=== PATIENT | male | born 1950 | race Caucasian/White ===

== ENCOUNTER 2020-05-12 11:45 | Outpatient (CLI) | payer MEDICARE, OTHER ==
[2020-05-12 14:12] LABS: #Eosinphils 0.1 thou/uL (0.0-0.7); #Lymphocytes 1.4 thou/uL (1.20-3.40); #Monocytes 0.7 thou/uL (0.11-0.59); #Neutrophils 6.5 thou/uL (1.40-6.50); %Basophils 0.5 % (0.0-1.0); %Eosinophils 1.6 % (0.0-10.0); %Lymphocytes 16.1 % (21.0-51.0); %Monocytes 7.9 % (0.0-10.0); Hemoglobin 15.1 g/dL (14.0-18.0); Mean Corpuscular HGB CONC 33.4 g/dL (32.0-36.0); Mean Corpuscular Hemoglobin 33.3 pg (27.0-31.0); Mean Corpuscular Volume 99.5 fL (78.0-98.0); Platelet Count 158 thou/uL (130-400); Red Blood Cell (RBC) Count 4.52 mill/uL (4.70-6.10); White Blood Cell (WBC) Count 8.8 thou/uL (4.8-10.8)
[2020-05-12 15:43] LABS: ALT (SGPT) 50 U/L (8-55); AST (SGOT) 31 U/L (5-34); Albumin 4.8 g/dL (3.4-4.8); Alkaline Phosphatase 102 U/L (40-110); Anion Gap 15 mmol/L (10-20); BUN (Urea Nitrogen) 20 mg/dL (8.4-25.7); Bilirubin, Direct 0.3 mg/dL (0.1-0.3); Bilirubin, Total 0.8 mg/dL (0.2-1.2); Calc. Creatinine Clearance 0 mL/min (70-130); Calcium 9.9 mg/dL (7.8-10.44); Carbon Dioxide 22 mmol/L (23-31); Chloride 107 mmol/L (98-107); Estimated GFR-MDRD 58; Glucose 116 mg/dL (80-115); Potassium 4.3 mmol/L (3.5-5.1); Protein, Total 7.3 g/dL (5.8-8.1); Sodium 140 mmol/L (136-145)
[2020-05-13 12:22] LABS: SARS-CoV-2 MS2 Positive; SARS-CoV-2 N Gene Negative; SARS-CoV-2 S Gene Negative; SARS-CoV-2 orf1ab Negative
== END 2020-05-12 11:46 | disposition home or self-care (01) ==
LOC: LABBT 11:45
PROVIDERS: ATTEND Surgery
DX: Z01.818 Encounter for other preprocedural examination (principal); Z11.59 Encounter for screening for other viral diseases; K80.20 Calculus of gallbladder without cholecystitis without obstruction
CPT/HCPCS: 80048; 80076; 83690; 85025; 93005; U0003; 87635; 93010

== ENCOUNTER 2020-05-17 11:57 | Day surgery (SDC) | payer MEDICARE ==
[2020-05-16 13:03] VITALS: BMI 28.3
[~2020-05-17 11:57] MED LIST: Dexamethasone 20 MG/5 ML VIAL ONE; EPHEDRINE 25 MG/5 ML SYRINGE ONE; Glycopyrrolate 0.2 MG/ML 5 ML SYRINGE ONE; Lidocaine 1% PF 5 ML VIAL ONE; Ondansetron PF 4 MG/2 ML Vial ONE; PHENYLEPHRINE-NS 100 MCG/ML 10 ML SYRINGE ONE; PROPOFOL 200 MG/20 ML VIAL ONE; Rocuronium Bromide 10 MG/ML (10ML VIAL) ONE
[2020-05-17] MEDS ORDERED: Bupivacaine 0.25% HCL 30 ML VIAL ONE (15:41)
[2020-05-17] MEDS ORDERED: Lidocaine 1% w/Epinephrine 1:100K 20 ML VIAL ONE (15:41)
[2020-05-17] MEDS ORDERED: Iopamidol 50 ML FS ONE (16:04)
[2020-05-17] MEDS ORDERED: Fentanyl 250 MCG/5 ML VIAL ONE (16:17)
--- NOTE | 2020-05-17 17:30 | RAD ---
EXAM: XR Cholangiogram in Surgery PROVIDED CLINICAL HISTORY: Right upper quadrant pain and nausea. Cholelithiasis. COMPARISON: None FINDINGS/IMPRESSION: Single fluoroscopic image right upper quadrant from an intraoperative cholangiogram is submitted. Tereza gical instruments overlie the right upper quadrant. Cystic duct is cannulated. There is opacification of the common duct and most proximal right and left hepatic ducts. There is evidence of free spill of contrast into the small bowel. A very small portion of the mid common duct is obscured due to overlying surgical instrument, but there is otherwise no filling defect seen within t he visualized intra or extrahepatic bile ducts. Surgical clips overlie the right upper quadrant. Correlation with intraoperative findings is recommended. Fluoroscopy: Time-13 seconds Dose-2.70 mGy
[2020-05-17] MEDS ORDERED: Fentanyl 100 MCG/2 ML VIAL ONE (17:53)
[2020-05-17] MEDS ORDERED: hydrALAZINE 20 MG/ML VIAL ONE (17:56)
--- NOTE | 2020-05-18 13:08 | OP ---
DATE OF PROCEDURE: 05/17/2020 PREOPERATIVE DIAGNOSES: 1. Symptomatic gallstones. 2. History of liver test elevation. POSTOPERATIVE DIAGNOSES: 1. Symptomatic gallstones. 2. History of liver test elevation. PROCEDURES PERFORMED: 1. Laparoscopic cholecystectomy with intraoperative cholangiogram. 2. Laparoscopic liver core biopsy. ANESTHESIA: General. ESTIMATED BLOOD LOSS: Minimal. COMPLICATIONS: None. SPECIMEN: Gallbladder. Core needle biopsy of liver. FINDINGS: Normal cholangiogram. DESCRIPTION OF PROCEDURE: The patient was taken to the operating room and laid supine on the operating room table. After general anesthetic was obtained, the abdomen was shaved, prepped, draped in a sterile fashion. A curved incision was made below the umbilicus. Cautery was used to dissect down to and score the fascia. Abdominal cavity was entered bluntly using a Zuly clamp. Holding stitch of PDS was placed on each side of the fascia. [place] trocar was placed. High-flow pneumoperitoneum was obtained. An upper midline 5 mm port as well as two right upper quadrant 5 mm ports were placed under direct visualization. The gallbladder was retracted from the gallbladder fossa. The peritoneum was opened anteriorly and posteriorly. Critical view of triangle was seen, showing only the cystic duct and cystic artery branch medial to lateral. No other branching structures. A clip was placed high on the cystic duct. A small ductotomy was made just proximal to that. A cholangiocatheter was brought in through a separate stab incision and placed in the cystic duct and a cholangiogram was performed. It showed good contrast flow into the duodenum without obstruction. The cholangiocatheter was removed and 2 clips were placed proximally on the cystic duct and was cut using laparoscopic scissors. Cystic artery was taken using 2 clips proximally, 1 clip distally, cut using laparoscopic scissors. Cautery was used to dissect the gallbladder from the gallbladder fossa. The gallbladder was placed in EndoCatch bag and brought out through the [place]. There was no bleeding or bile in the liver bed. The right upper quadrant was irrigated using sterile solution. Three cores of liver obtained with percutaneous core needle biopsy. Cautery was used to control bleeding at the biopsy sites. There was no ongoing bleeding. All port sites were infiltrated using local anesthetic. All ports were removed under camera visualization. Pneumoperitoneum was let down. PDS was used to close the fascial defect below the umbilicus. All incisions were irrigated and closed using 4-0 Monocryl and Dermabond. The patient was sent to Recovery in stable condition. All instrument counts, needle counts, and lap counts were correct. Job ID: [id number]
== END 2020-05-17 19:10 | disposition home or self-care (01) ==
LOC: SDC 11:57
PROVIDERS: ATTEND Surgery
PROC: 0FT44ZZ Resection of Gallbladder, Percutaneous Endoscopic Approach (ICD-10-PCS; principal; 2020-05-17)
PROC: BF121ZZ Fluoroscopy of Gallbladder using Low Osmolar Contrast (ICD-10-PCS; 2020-05-17)
PROC: 0FB04ZX Excision of Liver, Percutaneous Endoscopic Approach, Diagnostic (ICD-10-PCS; 2020-05-17)
DX: K80.12 Calculus of gallbladder with acute and chronic cholecystitis without obstruction (principal); K76.0 Fatty (change of) liver, not elsewhere classified; Z79.899 Other long term (current) drug therapy
CPT/HCPCS: 47532; 88304; 88307; 88313; J0360; J1100; J2405; J2704; J3010; Q9967; S0020

== ENCOUNTER 2023-06-02 11:49 | Inpatient (IN) | payer MEDICARE ==
[~2023-06-02 11:49] MED LIST changes: -Dexamethasone 20 MG/5 ML VIAL ONE; -EPHEDRINE 25 MG/5 ML SYRINGE ONE; -Glycopyrrolate 0.2 MG/ML 5 ML SYRINGE ONE; +Iopamidol-370 76% 500 ML MDV (1 ML CHARGE) ONE; -Lidocaine 1% PF 5 ML VIAL ONE; -Ondansetron PF 4 MG/2 ML Vial ONE; -PHENYLEPHRINE-NS 100 MCG/ML 10 ML SYRINGE ONE; -PROPOFOL 200 MG/20 ML VIAL ONE; -Rocuronium Bromide 10 MG/ML (10ML VIAL) ONE
[2023-06-02 12:12] LABS: #Basophils 0.1 thou/uL (0.0-0.2); #Monocytes 1.3 thou/uL (0.11-0.59); #Neutrophils 12.4 thou/uL (1.40-6.50); %Basophils 0.4 % (0.0-1.0); %Eosinophils 0.1 % (0.0-10.0); %Monocytes 8.6 % (0.0-10.0); %Neutrophils 84.3 % (42.0-75.0); Hematocrit 46.9 % (42.0-52.0); Hemoglobin 15.7 g/dL (14.0-18.0); Mean Corpuscular HGB CONC 33.5 g/dL (32.0-36.0); Mean Corpuscular Hemoglobin 32.8 pg (27.0-31.0); Mean Corpuscular Volume 97.9 fl (78.0-98.0); Mean Platelet Volume 8.8 fL (7.4-10.4); Platelet Count 159 10x3/uL (130-400); RBC Distribution Width 12.7 % (11.5-14.5); Red Blood Cell (RBC) Count 4.79 mill/uL (4.70-6.10); White Blood Cell (WBC) Count 14.7 10x3/uL (4.8-10.8)
[2023-06-02] MEDS ORDERED: Ondansetron PF 4 MG/2 ML Vial ONE (12:29)
[2023-06-02] MEDS ORDERED: Dicyclomine 20 MG TAB ONE ×2 (12:29→12:41)
[2023-06-02 12:37] LABS: ALT (SGPT) 27 U/L (8-55); AST (SGOT) 21 U/L (5-34); Albumin 4.5 g/dL (3.4-4.8); Alkaline Phosphatase 109 U/L (40-110); Anion Gap 18 mmol/L (10-20); BUN (Urea Nitrogen) 28 mg/dL (8.4-25.7); Bilirubin, Total 1.5 mg/dL (0.2-1.2); Calc. Creatinine Clearance 0 mL/min (70-130); Calcium 9.3 mg/dL (7.8-10.44); Carbon Dioxide 21 mmol/L (23-31); Chloride 98 mmol/L (98-107); Estimated GFR 53; Globulin 3.5 g/dL (2.4-3.5); Glucose 111 mg/dL (80-115); Lipase 31 U/L (8-78); Potassium 3.8 mmol/L (3.5-5.1); Sodium 133 mmol/L (136-145)
[2023-06-02 13:29] LABS: Bacteria/HPF 4+ HPF (None Seen); Bilirubin Negative (Negative); Blood, Urine 1+ (Negative); CAUTI Indications for Culture Pelvic or flank pain; Clarity Turbid (Clear); Glucose, Urine (Dipstick) Normal (Negative); Ketone, Urine Negative (Negative); Leukocyte 500 Leu/uL (Negative); Nitrite 1+ (Negative); Protein, Urine (Dipstick) 10 mg/dL (Neg-Trace); Specific Gravity, Urine 1.022 (1.002-1.036); Squamous Epithelial 0-3 HPF (0-3); Urobilinogen Normal mg/dL (Less than 2); WBC/HPF Greater than 50 HPF (0-3)
[2023-06-02 13:34] LABS: Urine Culture Reflex Yes Yes
[2023-06-02] MEDS ORDERED: cefTRIAXone (ROCEPHIN) 2 GM VIAL ONE (14:05)
[2023-06-02] MEDS ORDERED: Ondansetron ODT 4 MG TAB PO PRN (15:53)
[2023-06-02] MEDS ORDERED: Ondansetron PF 4 MG/2 ML Vial IVP PRN (15:53)
[2023-06-02 17:04] VITALS: BMI 28.7
[2023-06-02] MEDS: Sodium Chloride 0.9% 1,000 ML IV SCH (17:44)
[2023-06-02] MEDS: Famotidine/PF 20 mg/2ml Vial SLOW IVP SCH (21:18)
[2023-06-02] MEDS: metroNIDAZOLE 500 MG in Premix Bag 1 BAG IVPB SCH (21:18)
[2023-06-02] MEDS: Acetaminophen 325 MG TAB PO PRN (21:19)
[2023-06-03] MEDS: Sodium Chloride 0.9% 1,000 ML IV SCH ×3 (02:52→17:01)
[2023-06-03] MEDS: metroNIDAZOLE 500 MG in Premix Bag 1 BAG IVPB SCH ×3 (04:34→21:30)
[2023-06-03] MEDS: Acetaminophen 325 MG TAB PO PRN ×2 (04:35→15:47)
[2023-06-03 06:55] LABS: #Monocytes 0.9 thou/uL (0.11-0.59); #Neutrophils 6.2 thou/uL (1.40-6.50); %Basophils 0.5 % (0.0-1.0); %Eosinophils 0.1 % (0.0-10.0); %Lymphocytes 8.2 % (21.0-51.0); %Neutrophils 79.2 % (42.0-75.0); Hematocrit 38.4 % (42.0-52.0); Hemoglobin 13.1 g/dL (14.0-18.0); Mean Corpuscular HGB CONC 34.1 g/dL (32.0-36.0); Mean Corpuscular Hemoglobin 33.4 pg (27.0-31.0); Platelet Count 151 10x3/uL (130-400); RBC Distribution Width 12.5 % (11.5-14.5); Red Blood Cell (RBC) Count 3.92 mill/uL (4.70-6.10); White Blood Cell (WBC) Count 7.8 10x3/uL (4.8-10.8)
[2023-06-03 07:30] LABS: Anion Gap 12 mmol/L (10-20); BUN (Urea Nitrogen) 28 mg/dL (8.4-25.7); Calc. Creatinine Clearance 71 mL/min (70-130); Calcium 7.9 mg/dL (7.8-10.44); Carbon Dioxide 19 mmol/L (23-31); Chloride 105 mmol/L (98-107); Estimated GFR 58; Glucose 105 mg/dL (80-115); Potassium 3.5 mmol/L (3.5-5.1); Sodium 132 mmol/L (136-145)
[2023-06-03] MEDS: Famotidine/PF 20 mg/2ml Vial SLOW IVP SCH ×2 (08:40→20:30)
[2023-06-03] MEDS: Losartan 25 MG TAB PO SCH (08:43)
[2023-06-03] MEDS: cefTRIAXone\\ROCEPHIN 1 GM in Sodium Chloride 0.9% 100 ML IVPB SCH (14:06)
[2023-06-04] MEDS: metroNIDAZOLE 500 MG in Premix Bag 1 BAG IVPB SCH (05:32)
[2023-06-04] MEDS: Acetaminophen 325 MG TAB PO PRN ×2 (05:37→20:35)
[2023-06-04 06:55] LABS: #Monocytes 0.8 thou/uL (0.11-0.59); #Neutrophils 3.9 thou/uL (1.40-6.50); %Basophils 0.7 % (0.0-1.0); %Eosinophils 0.2 % (0.0-10.0); %Lymphocytes 14.4 % (21.0-51.0); %Monocytes 14.4 % (0.0-10.0); %Neutrophils 69.4 % (42.0-75.0); Hematocrit 38.1 % (42.0-52.0); Mean Corpuscular HGB CONC 34.1 g/dL (32.0-36.0); Mean Corpuscular Hemoglobin 32.7 pg (27.0-31.0); Mean Platelet Volume 8.8 fL (7.4-10.4); Platelet Count 121 10x3/uL (130-400); RBC Distribution Width 12.4 % (11.5-14.5); Red Blood Cell (RBC) Count 3.97 mill/uL (4.70-6.10); White Blood Cell (WBC) Count 5.7 10x3/uL (4.8-10.8)
[2023-06-04 07:17] LABS: Anion Gap 15 mmol/L (10-20); BUN (Urea Nitrogen) 20 mg/dL (8.4-25.7); Calc. Creatinine Clearance 70 mL/min (70-130); Calcium 8.2 mg/dL (7.8-10.44); Carbon Dioxide 20 mmol/L (23-31); Chloride 102 mmol/L (98-107); Estimated GFR 58; Glucose 99 mg/dL (80-115); Potassium 3.8 mmol/L (3.5-5.1); Sodium 133 mmol/L (136-145)
[2023-06-04] MEDS: Gabapentin 300 MG CAP PO SCH ×3 (09:14→20:36)
[2023-06-04] MEDS: Losartan 25 MG TAB PO SCH (09:15)
[2023-06-04] MEDS: Sodium Chloride 0.9% 1,000 ML IV SCH ×2 (09:30→23:30)
[2023-06-04 14:01] LABS: SARS-CoV-2 NAA Rapid Test Not Detected (NotDetected)
[2023-06-04] MEDS: cefTRIAXone\\ROCEPHIN 1 GM in Sodium Chloride 0.9% 100 ML IVPB SCH (15:09)
[2023-06-05] MEDS: Acetaminophen 325 MG TAB PO PRN ×3 (04:14→20:25)
[2023-06-05] MEDS: Sodium Chloride 0.9% 1,000 ML IV SCH ×2 (04:23→20:29)
[2023-06-05] MEDS ORDERED: Cefepime 1 GM in Sodium Chloride 0.9% 100 ML IVPB SCH (08:00)
[2023-06-05] MEDS: Losartan 25 MG TAB PO SCH (09:20)
[2023-06-05] MEDS: Gabapentin 300 MG CAP PO SCH ×3 (09:23→20:25)
[2023-06-05] MEDS: Sulfameth/Trimethoprim DS 800-160mg TAB PO SCH (20:25)
[2023-06-06] MEDS: Sulfameth/Trimethoprim DS 800-160mg TAB PO SCH (08:56)
[2023-06-06] MEDS: Gabapentin 300 MG CAP PO SCH (08:56)
[2023-06-06] MEDS: Losartan 25 MG TAB PO SCH (08:56)
[2023-06-06 11:40] VITALS: BP 104/69; TEMP 98
== END 2023-06-06 11:56 | disposition home or self-care (01) | DRG 690 ==
LOC: ERS 11:49 → T4-A 15:48 → OBSVTOIN 06-03 12:35
PROVIDERS: ADMIT Internal Medicine; ATTEND Internal Medicine
DX: N30.00 Acute cystitis without hematuria (principal); N17.9 Acute kidney failure, unspecified; B96.20 Unspecified Escherichia coli [E. coli] as the cause of diseases classified elsewhere; I10 Essential (primary) hypertension; M54.30 Sciatica, unspecified side; N32.89 Other specified disorders of bladder; Z20.822 Contact with and (suspected) exposure to COVID-19; Z79.899 Other long term (current) drug therapy; Z90.49 Acquired absence of other specified parts of digestive tract; E86.0 Dehydration; N40.0 Benign prostatic hyperplasia without lower urinary tract symptoms
CPT/HCPCS: 36415; 71250; 74177; 80048; 80053; 81001; 83605; 83690; 85025; 87040; 87077; 87086; 87186; 87633; 93005; 96374; 96375; J0692; J0696; J1650; J2405; J3490; J7050; Q9967; S0028; U0002